=== PATIENT | female | born 1935 | race African-American/Black ===

== ENCOUNTER 2018-04-01 14:19 | Inpatient (IN) | payer MEDICARE, MEDICAID ==
[~2018-04-01] VITALS: Ht 165.1 cm; Wt 55.3 kg
[~2018-04-01 14:19] MED LIST: ALBU05 NEB; CHOL100044 MT; DOCU-267 MT; FAMO20TA8 PO; FURO-152 MT; HYDR-4001 PO; HYDR-4009 MT; LANS30CA52 MT; METH2.5T MT; MUPI22OI2 NS; PRED5TAB MT; PRED5TAB PO
[2018-04-01] MEDS ORDERED: MORPHINE SULFATE 2 MG/ML CPJ (NOT FOR IM USE) IV ONE (16:00)
[2018-04-01] MEDS: MORPHINE SULFATE 10 MG/ML CPJ IV NR ×2 (16:01→16:02)
[2018-04-01 16:04] LABS: HEMATOCRIT. 23.5 % (36.0-48.0); HEMOGLOBIN. 7.7 g/dL (12.0-16.0); MEAN CORPUSCULAR HEMOGLOBIN 29.7 pg (28.0-32.0); MEAN CORPUSCULAR VOLUME 90.6 fL (81.0-99.0); MEAN PLATELET VOLUME 9.8 fl (7.4-10.4); PLATELET 213 x1000/uL (130-400); RED BLOOD CELL COUNT 2.59 mill/uL (4.2-5.4); RED CELL DISTRIBUTION WIDTH 17.8 % (11.6-14.6)
[2018-04-01 16:07] LABS: CHLORIDE 107 mEq/L (98-107)
[2018-04-01 16:09] LABS: INR 1.1; PARTIAL THROMBOPLASTIN TIME 39.7 sec (23.4-31.0); PROTHROMBIN TIME 11.3 sec (9.1-11.1)
[2018-04-01 16:43] LABS: PLATELET ESTIMATE NORMAL
[2018-04-01] MEDS ORDERED: MAGNESIUM/ALUMINUM HYDROXIDE/SIMETHICONE 30ML UDC PO PRN (18:30)
[2018-04-01] MEDS ORDERED: DOCUSATE SODIUM 100MG CAPSULE PO PRN (18:30)
[2018-04-01] MEDS ORDERED: HYDROCODONE/ACETAMINOPHEN 5/325MG TABLET PO PRN (18:30)
[2018-04-01] MEDS ORDERED: NA PHOS,M-B/NA PHOS,DI-BA ENEMA 118ML PR PRN (18:30)
[2018-04-01] MEDS ORDERED: ACETAMINOPHEN 650MG SUPP PR PRN (18:30)
[2018-04-01] MEDS ORDERED: ENOXAPARIN 40MG/0.4ML SYR SUBCUT SCH (18:30)
[2018-04-01] MEDS ORDERED: ONDANSETRON HCL 4MG/2ML INJ IV PRN (18:30)
[2018-04-01] MEDS ORDERED: GUAIFENESIN 200MG/10ML SUGAR FREE UDC PO PRN (18:30)
[2018-04-01] MEDS ORDERED: ACETAMINOPHEN 650MG/20.3ML UDC GT PRN (18:30)
[2018-04-01] MEDS ORDERED: DIPHENHYDRAMINE 50MG/ML VIAL IV PRN (18:30)
[2018-04-01] MEDS ORDERED: ACETAMINOPHEN 325MG TABLET PO PRN (18:30)
[2018-04-01 20:00] VITALS: BP_SYST 137; BP_SYST 175; BP_DIAS 73; BP_DIAS 93
[2018-04-01] MEDS: CLONIDINE 0.1MG TABLET PO PRN (22:53)
[2018-04-02] VITALS: BP 135/83
[2018-04-02 01:58] LABS: HEMATOCRIT 28.1 % (36.0-48.0); HEMOGLOBIN 9.3 g/dL (12.0-16.0)
[2018-04-02 06:51] LABS: BASOPHILS % 0.4 % (0.0-2.0); EOSINOPHILS % 0.6 % (0.0-5.0); HEMATOCRIT. 31.9 % (36.0-48.0); LYMPHOCYTES % 11.8 % (20.0-50.0); MEAN CORPUSCULAR HEMOGLOBIN 30.1 pg (28.0-32.0); MEAN CORPUSCULAR VOLUME 94.2 fL (81.0-99.0); MEAN PLATELET VOLUME 9.9 fl (7.4-10.4); NEUTROPHILS % 79.2 % (40.0-76.0); PLATELET 210 x1000/uL (130-400); RED BLOOD CELL COUNT 3.39 mill/uL (4.2-5.4); RED CELL DISTRIBUTION WIDTH 18.1 % (11.6-14.6)
[2018-04-02 06:53] LABS: HEMOGLOBIN. 10.2 g/dL (12.0-16.0)
[2018-04-02 07:26] LABS: CHLORIDE 110 mEq/L (98-107)
[2018-04-02 07:35] LABS: LDL CHOLESTEROL 56 mg/dL (5-100)
[2018-04-02 07:37] LABS: HDL CHOLESTEROL 24 mg/dL (40-59)
[2018-04-02 08:00] VITALS: BP 152/90
[2018-04-02] MEDS ORDERED: LIDOCAINE HCL/EPINEPHRINE 1%-EPI 1:100,000 20 ML VIAL INFIL NR (10:30)
[2018-04-02 12:00] VITALS: BP 161/80
[2018-04-02 16:00] VITALS: BP 157/82
[2018-04-02] MEDS: APIXABAN 2.5 MG TABLET PO SCH (17:31)
[2018-04-02] MEDS: CLONIDINE 0.1MG TABLET PO PRN (19:52)
[2018-04-02 20:00] VITALS: BP 162/88
[2018-04-03] VITALS: BP 167/99
[2018-04-03 05:47] VITALS: BP 167/99
[2018-04-03 08:00] VITALS: BP 176/90
[2018-04-03] MEDS: CLONIDINE 0.1MG TABLET PO PRN (09:33)
[2018-04-03] MEDS: APIXABAN 2.5 MG TABLET PO SCH ×2 (09:33→16:12)
[2018-04-03 12:00] VITALS: BP 173/89
[2018-04-03] MEDS ORDERED: LANSOPRAZOLE MT SCH (15:30)
[2018-04-03] MEDS ORDERED: METHOTREXATE SODIUM MT SCH (15:30)
[2018-04-03] MEDS ORDERED: PREDNISONE 5MG TABLET PO SCH (15:30)
[2018-04-03 16:00] VITALS: BP 161/92
[2018-04-03] MEDS: FOLIC ACID/VITAMIN B COMP W-C TABLET PO SCH (16:12)
[2018-04-03] MEDS: NYSTATIN POWDER 15GM TOP SCH (17:37)
[2018-04-03] MEDS ORDERED: METHOTREXATE SODIUM 2 . 5MG TABLET PO SCH (18:00)
[2018-04-03 20:00] VITALS: BP 156/71
[2018-04-04] VITALS (10 sets, daily range): BP systolic 116–174; BP diastolic 71–104
[2018-04-04] MEDS: IRON SUCROSE COMPLEX 100 MG/5 ML ML IV SCH ×2 (02:47→20:54)
[2018-04-04] MEDS: CLONIDINE 0.1MG TABLET PO PRN (03:21)
[2018-04-04 04:16] LABS: BG BASE EXCESS -5.5 mmol/L (-2.0-2.0); BG CARBOXYHEMOGLOBIN 0.1 % (0.5-1.5); BG DEOXYHEMOGLOBIN 0.6 % (0.0-5.0); BG FRACTION INSPIRED OXYGEN 100; BG HCO3 ACT 19.9 mmol/L (22.0-26.0); BG METHEMOGLOBIN 0.3 % (0.0-1.5); BG OXYGEN SATURATION 99.4 % (92.0-98.5); BG PCO2 38.4 mmHg (35.0-45.0); BG PH 7.333 (7.350-7.450); BG PO2 343.3 mmHg (75.0-100.0); BG SAMPLE SITE RIGHT RADIAL; BG TOTAL HEMOGLOBIN 10.3 g/dL (12.0-18.0); BG VENT MODE MASK - NRB
[2018-04-04] MEDS ORDERED: FUROSEMIDE 40MG/4ML VIAL IVP NR (05:00)
[2018-04-04] MEDS ORDERED: METHYLPREDNISOLONE SOD SUCC 40 MG/ML VIAL IV SCH (06:00)
[2018-04-04] MEDS ORDERED: PANTOPRAZOLE 40MG DR TABLET PO SCH (06:50)
[2018-04-04] MEDS: FOLIC ACID/VITAMIN B COMP W-C TABLET PO SCH (09:35)
[2018-04-04] MEDS: APIXABAN 2.5 MG TABLET PO SCH ×2 (09:36→16:06)
[2018-04-04] MEDS: NYSTATIN POWDER 15GM TOP SCH ×2 (11:01→16:07)
[2018-04-04] MEDS ORDERED: DIGOXIN 125MCG TABLET PO NR (11:15)
[2018-04-04] MEDS ORDERED: DIGOXIN 500MCG/2ML AMP IV NR (12:30)
[2018-04-04] MEDS ORDERED: LABETALOL HCL 20MG/4ML CARPUJECT IV NR (13:00)
[2018-04-04] MEDS ORDERED: VANCOMYCIN 1500MG in DEXTROSE 5% WATER 250ML IV NR (13:00)
[2018-04-04] MEDS: METOPROLOL TARTRATE 50MG TABLET PO SCH ×2 (16:07→20:55)
[2018-04-04] MEDS ORDERED: DIGOXIN 125MCG TABLET PO SCH (18:00)
[2018-04-04 19:47] LABS: HEMATOCRIT 25.4 % (36.0-48.0)
[2018-04-04 20:18] LABS: FOLIC ACID (FOLATE) SERUM 13.8 ng/mL (>5.38)
[2018-04-04] MEDS: METHYLPREDNISOLONE SOD SUCC 40 MG/ML VIAL IV SCH (20:54)
[2018-04-05] VITALS (11 sets, daily range): BP systolic 128–155; BP diastolic 61–91
[2018-04-05] MEDS: VANCOMYCIN 750 MG PREMIX 150 ML IV SCH ×2 (05:28→23:55)
[2018-04-05] MEDS: FOLIC ACID/VITAMIN B COMP W-C TABLET PO SCH (09:42)
[2018-04-05] MEDS: FUROSEMIDE 40MG TABLET PO SCH (09:42)
[2018-04-05] MEDS: PANTOPRAZOLE SODIUM 40 MG/VIAL IV SCH (09:43)
[2018-04-05] MEDS: METOPROLOL TARTRATE 50MG TABLET PO SCH ×2 (09:43→21:50)
[2018-04-05] MEDS: APIXABAN 2.5 MG TABLET PO SCH ×2 (09:43→17:31)
[2018-04-05] MEDS: METHYLPREDNISOLONE SOD SUCC 40 MG/ML VIAL IV SCH ×2 (09:43→21:50)
[2018-04-05] MEDS: NYSTATIN POWDER 15GM TOP SCH ×2 (10:48→17:33)
[2018-04-05] MEDS: PIPERACILLIN/TAZ 3.375G PREMIX 50 ML IV SCH ×2 (13:45→21:52)
[2018-04-05] MEDS ORDERED: METH2.5T PO (14:41)
[2018-04-05] MEDS ORDERED: FURO40TA5 PO (14:41)
[2018-04-05] MEDS ORDERED: APIX2.5T PO (14:41)
[2018-04-05] MEDS ORDERED: METO-539 PO (14:41)
[2018-04-05] MEDS ORDERED: DIGO-26 PO (14:41)
[2018-04-05] MEDS ORDERED: METHOTREXATE SODIUM 2 . 5MG TABLET PO SCH (17:00)
[2018-04-05] MEDS: DIGOXIN 125MCG TABLET PO SCH (17:31)
[2018-04-06] VITALS (12 sets, daily range): BP systolic 109–170; BP diastolic 47–98
[2018-04-06] MEDS: PIPERACILLIN/TAZ 3.375G PREMIX 50 ML IV SCH ×3 (04:57→20:56)
[2018-04-06] MEDS: FOLIC ACID/VITAMIN B COMP W-C TABLET PO SCH (08:36)
[2018-04-06] MEDS: APIXABAN 2.5 MG TABLET PO SCH ×2 (08:36→17:22)
[2018-04-06] MEDS: FUROSEMIDE 40MG TABLET PO SCH (08:37)
[2018-04-06] MEDS: PANTOPRAZOLE SODIUM 40 MG/VIAL IV SCH (08:37)
[2018-04-06] MEDS: NYSTATIN POWDER 15GM TOP SCH ×2 (08:37→17:18)
[2018-04-06] MEDS: METHYLPREDNISOLONE SOD SUCC 40 MG/ML VIAL IV SCH ×2 (08:37→20:55)
[2018-04-06] MEDS: METOPROLOL TARTRATE 50MG TABLET PO SCH ×2 (08:38→20:56)
[2018-04-06 15:20] LABS: HEMATOCRIT. 22.8 % (36.0-48.0); HEMOGLOBIN. 7.2 g/dL (12.0-16.0); MEAN CORPUSCULAR HEMOGLOBIN 28.5 pg (28.0-32.0); MEAN CORPUSCULAR VOLUME 90.4 fL (81.0-99.0); MEAN PLATELET VOLUME 9.7 fl (7.4-10.4); PLATELET 248 x1000/uL (130-400); RED BLOOD CELL COUNT 2.52 mill/uL (4.2-5.4); RED CELL DISTRIBUTION WIDTH 16.9 % (11.6-14.6)
[2018-04-06 15:57] LABS: PLATELET ESTIMATE NORMAL
[2018-04-06] MEDS: DIGOXIN 125MCG TABLET PO SCH (17:22)
[2018-04-06] MEDS: IPRATROPIUM/ALBUTEROL 0.5-3(2.5)MG/3ML NEB INH PRN (21:50)
[2018-04-07] VITALS (16 sets, daily range): BP systolic 102–178; BP diastolic 52–98
[2018-04-07] MEDS: PIPERACILLIN/TAZ 3.375G PREMIX 50 ML IV SCH ×3 (04:54→21:34)
[2018-04-07] MEDS: FOLIC ACID/VITAMIN B COMP W-C TABLET PO SCH (08:45)
[2018-04-07] MEDS: APIXABAN 2.5 MG TABLET PO SCH ×2 (08:46→17:06)
[2018-04-07] MEDS: FUROSEMIDE 40MG TABLET PO SCH (08:46)
[2018-04-07] MEDS: METOPROLOL TARTRATE 50MG TABLET PO SCH ×2 (08:48→21:34)
[2018-04-07] MEDS: NYSTATIN POWDER 15GM TOP SCH ×2 (08:54→17:06)
[2018-04-07] MEDS: METHYLPREDNISOLONE SOD SUCC 40 MG/ML VIAL IV SCH ×2 (08:54→21:33)
[2018-04-07] MEDS: PANTOPRAZOLE SODIUM 40 MG/VIAL IV SCH (08:54)
[2018-04-07] MEDS: DIGOXIN 125MCG TABLET PO SCH (17:06)
[2018-04-07 20:37] LABS: HEMATOCRIT 22.3 % (36.0-48.0)
[2018-04-08] VITALS (22 sets, daily range): BP systolic 56–183; BP diastolic 20–125
[2018-04-08 03:01] LABS: HEMATOCRIT 25.6 % (36.0-48.0); HEMOGLOBIN 8.5 g/dL (12.0-16.0)
[2018-04-08] MEDS: PIPERACILLIN/TAZ 3.375G PREMIX 50 ML IV SCH ×3 (04:31→21:24)
[2018-04-08] MEDS ORDERED: VANCOMYCIN 500 MG PREMIX 100 ML IV SCH (06:00)
[2018-04-08] MEDS: METHYLPREDNISOLONE SOD SUCC 40 MG/ML VIAL IV SCH ×2 (09:02→21:24)
[2018-04-08] MEDS: PANTOPRAZOLE SODIUM 40 MG/VIAL IV SCH (09:02)
[2018-04-08] MEDS: APIXABAN 2.5 MG TABLET PO SCH (09:03)
[2018-04-08] MEDS: FOLIC ACID/VITAMIN B COMP W-C TABLET PO SCH (09:03)
[2018-04-08] MEDS: FUROSEMIDE 40MG TABLET PO SCH (09:03)
[2018-04-08] MEDS: METOPROLOL TARTRATE 50MG TABLET PO SCH ×2 (09:03→21:00)
[2018-04-08] MEDS: NYSTATIN POWDER 15GM TOP SCH ×2 (09:03→17:01)
[2018-04-08] MEDS: IPRATROPIUM/ALBUTEROL 0.5-3(2.5)MG/3ML NEB INH PRN ×3 (09:46→21:27)
[2018-04-08] MEDS ORDERED: ACETYLCYSTEINE 200MG/ML 20% VIAL 4ML PO SCH (11:00)
[2018-04-08] MEDS ORDERED: LORAZEPAM 2MG/ML CPJ IV PRN (11:45)
[2018-04-08] MEDS: DIGOXIN 125MCG TABLET PO SCH (17:01)
[2018-04-08 18:24] LABS: TOTAL IRON BINDING CAPACITY 143 ug/dL (250-450)
[2018-04-08] MEDS ORDERED: MORPHINE SULFATE 10MG/5ML ORAL SOLN UDC PO PRN (18:45)
[2018-04-08] MEDS ORDERED: DILTIAZEM HCL 5MG/ML 5ML VIAL IV NR (18:45)
[2018-04-08] MEDS ORDERED: MORP10SY4 PO (18:48)
[2018-04-09] VITALS: BP 130/51
[2018-04-09 02:00] VITALS: BP 135/75
== END 2018-04-09 02:28 | DRG 853 ==
LOC: ER 14:31 → EDBEDREQ 15:05 → ENRESERV 15:57 → EDBEDREQ 17:04 → 6EST 17:19 → EDBEDREQ 17:21 → 3WST 04-04 06:00
PROVIDERS: ADMIT Family Medicine; ATTEND Family Medicine
PROC: 30233N1 Transfusion of Nonautologous Red Blood Cells into Peripheral Vein, Percutaneous Approach (ICD-10-PCS; 2018-04-01)
PROC: 0QB10ZZ Excision of Sacrum, Open Approach (ICD-10-PCS; principal; 2018-04-02)
DX: A41.9 Sepsis, unspecified organism (principal); J96.00 Acute respiratory failure, unspecified whether with hypoxia or hypercapnia; L89.154 Pressure ulcer of sacral region, stage 4; R53.2 Functional quadriplegia; J18.1 Lobar pneumonia, unspecified organism; I50.32 Chronic diastolic (congestive) heart failure; I47.1 Supraventricular tachycardia; M06.9 Rheumatoid arthritis, unspecified; D64.9 Anemia, unspecified; F03.90 Unspecified dementia, unspecified severity, without behavioral disturbance, psychotic disturbance, mood disturbance, and anxiety; B96.1 Klebsiella pneumoniae [K. pneumoniae] as the cause of diseases classified elsewhere; B96.20 Unspecified Escherichia coli [E. coli] as the cause of diseases classified elsewhere; B95.2 Enterococcus as the cause of diseases classified elsewhere; R13.10 Dysphagia, unspecified; E11.9 Type 2 diabetes mellitus without complications; G89.29 Other chronic pain; R62.7 Adult failure to thrive; I11.0 Hypertensive heart disease with heart failure; Z86.73 Personal history of transient ischemic attack (TIA), and cerebral infarction without residual deficits; Z86.711 Personal history of pulmonary embolism; Z74.01 Bed confinement status; Z86.718 Personal history of other venous thrombosis and embolism; Z93.1 Gastrostomy status; Z88.6 Allergy status to analgesic agent; Z88.5 Allergy status to narcotic agent; Z79.51 Long term (current) use of inhaled steroids; Z79.1 Long term (current) use of non-steroidal anti-inflammatories (NSAID); Z79.899 Other long term (current) drug therapy
CPT/HCPCS: 36415; 36600; 71045; 80048; 80061; 80202; 82270; 82375; 82607; 82728; 82746; 82805; 82962; 83540; 83550; 83605; 84134; 85014; 85018; 85044; 86850; 86900; 86920; 93005; 94640; 96374; 99291; A6261; C9113; J1160; J1200; J1940; J2060; J2270; J2543; J2920; J3370; J3490; J7050; J7060; J7512; J7608; J7620; J8610; P9016; A4315

== ENCOUNTER → 2018-04-18 | Day surgery (SDC) | payer MEDICARE, MEDICAID ==
[~2018-04-18] VITALS: Ht 165.1 cm; Wt 54.9 kg
[2018-04-18] VITALS (8 sets, daily range): BP systolic 150–171; BP diastolic 86–90
[~2018-04-18] MED LIST changes: +APIX2.5T PO; +DIGO-26 PO; -FURO-152 MT; +FURO40TA5 PO; -HYDR-4001 PO; -HYDR-4009 MT; +IOHEXOL-300 100 ML BOTTLE ONE; +LIDOCAINE HCL 1% 20ML VIAL (Pyxis) INJ ONE; +METH2.5T PO; +METO-539 PO; +MORP10SY4 PO; -PRED5TAB MT; +SODIUM BICARBONATE 4% (2.4MEQ) 5ML VIAL IV ONE
== END | disposition home or self-care (01) ==
LOC: ANGIO 08:22
PROVIDERS: ATTEND Internal Medicine Critical Care Medicine
DX: I82.4Z2 Acute embolism and thrombosis of unspecified deep veins of left distal lower extremity (principal)
CPT/HCPCS: 37191; C1769; C1880; J1644; J3490; Q9967